=== PATIENT | male | born 1950 | race African-American/Black ===

== ENCOUNTER 2017-12-10 14:41 | Inpatient (IN) | payer MEDICARE ==
[~2017-12-10] VITALS: Ht 182.9 cm; Wt 97.5 kg
[2017-12-10] MEDS ORDERED: SODIUM CHLORIDE 0.9% 500 ML IVB ONE (15:10)
[2017-12-10 15:38] LABS: Basophils # (auto) 0.1 uL; Basophils % (auto) 0.5 % (0.0-2.0); Eosinophils # (auto) 0.1 uL; Eosinophils % (auto) 0.8 % (0.0-7.0); Hematocrit 43.6 % (41.0-53.0); Hemoglobin 14.5 g/dL (13.5-17.5); Lymphocytes # (auto) 0.7 uL; Lymphocytes % (auto) 6.6 % (10.0-50.0); Mean Corpuscular Hemoglobin 28.5 pg (28.0-32.0); Mean Corpuscular Hgb Conc. 33.2 g/dL (32.0-36.0); Mean Corpuscular Volume 85.7 fL (80.0-100.0); Monocytes % (auto) 9.7 % (0.0-12.0); Neutrophils # (auto) 8.5 uL; Neutrophils % (auto) 82.4 % (37.0-80.0); Platelet Count (auto) 255 10^3/uL (140-450); Red Blood Cells 5.08 10^6/uL (4.5-5.90); Red Cell Distribution Width 14.6 % (11.8-14.3); White Blood Cell 10.3 10^3/uL (4.4-10.8)
[2017-12-10 15:45] LABS: Albumin 2.8 g/dL (3.4-5.0); BUN/Creatinine Ratio 13.2; Calcium 8.9 mg/dL (8.5-10.1); Magnesium 2.4 mg/dL (1.6-2.6); Potassium 4.4 mmol/L (3.5-5.1)
[2017-12-10 15:50] LABS: Bilirubin, Total 0.5 mg/dL (0.2-1.0); Total Protein 7.4 g/dL (6.4-8.2)
[2017-12-10] MEDS ORDERED: MORPHINE SULFATE 4 MG/ML SYR/VIAL IV ONE (17:00)
[2017-12-10] MEDS ORDERED: ONDANSETRON HCL 4 MG/2 ML VIAL IV ONE (17:00)
[2017-12-10] MEDS ORDERED: IOHEXOL 300 MG/ML 100ML BOTTLE IJ ONE (17:14)
[2017-12-10] MEDS ORDERED: MORPHINE SULFATE 4 MG/ML SYR/VIAL IV PRN (17:15)
[2017-12-10] MEDS ORDERED: ONDANSETRON HCL 4 MG/2 ML VIAL IV PRN (17:15)
[2017-12-10] MEDS ORDERED: LORazepam 0.5 MG TAB PO PRN (17:15)
[2017-12-10] MEDS ORDERED: DEXTROSE (50%) 50ML SYRG IV PRN (17:15)
[2017-12-10] MEDS ORDERED: traMADol HCL 50 MG TAB PO PRN (17:15)
[2017-12-10] MEDS ORDERED: NITROGLYCERIN 0.4 MG SL TAB SL PRN (17:15)
[2017-12-10 17:29] LABS: INR 1.27 (0.9-1.15); Partial Thromboplastin Time 27.1 sec (23.78-33.04); Prothrombin Time 13.4 sec (9.27-12.13)
[2017-12-10] MEDS: SODIUM CHLORIDE 0.9% 1,000 ML IV SCH (17:45)
[2017-12-10] MEDS ORDERED: HALO2CON8 PO (19:35)
[2017-12-10] MEDS ORDERED: METR500T PO (19:35)
[2017-12-10] MEDS ORDERED: AMLO10TA12 PO (19:35)
[2017-12-10] MEDS ORDERED: AMOX400S53 PO (19:35)
[2017-12-10] MEDS ORDERED: LEV50T PO (19:35)
[2017-12-10] MEDS: MORPHINE SULFATE 4 MG/ML SYR/VIAL IV PRN (21:15)
[2017-12-10] MEDS: TEMAZEPAM 15 MG CAP PO PRN (21:16)
[2017-12-10] MEDS: ACCU-CHEK COMFORT CURVE STRIP VI SCH (21:18)
[2017-12-10 22:00] VITALS: BP 123/75
[2017-12-11] MEDS: ACCU-CHEK COMFORT CURVE STRIP VI SCH ×5 (01:31→23:31)
[2017-12-11] MEDS: MORPHINE SULFATE 4 MG/ML SYR/VIAL IV PRN ×3 (03:49→18:09)
[2017-12-11] MEDS: SODIUM CHLORIDE 0.9% 1,000 ML IV SCH ×3 (04:22→23:30)
[2017-12-11 05:00] VITALS: BP 107/84
[2017-12-11 05:43] LABS: Calcium 8.1 mg/dL (8.5-10.1); Potassium 4.3 mmol/L (3.5-5.1)
[2017-12-11 05:49] LABS: Albumin 2.4 g/dL (3.4-5.0); BUN/Creatinine Ratio 13.1; Bilirubin, Total 0.4 mg/dL (0.2-1.0); Total Protein 6.5 g/dL (6.4-8.2)
[2017-12-11 08:00] VITALS: BP 147/73
[2017-12-11 09:00] VITALS: BP 147/73
[2017-12-11] MEDS: PANTOPRAZOLE 40 MG TAB PO SCH (10:37)
[2017-12-11 13:00] VITALS: BP 134/97
[2017-12-11] MEDS ORDERED: IOHEXOL 300 MG/ML 100ML BOTTLE IJ ONE (15:10)
[2017-12-11 16:07] VITALS: BP 150/90
[2017-12-11 22:00] VITALS: BP 143/95
[2017-12-12] MEDS: MORPHINE SULFATE 4 MG/ML SYR/VIAL IV PRN ×4 (01:02→18:18)
[2017-12-12 04:47] VITALS: BP 118/72
[2017-12-12] MEDS: ACCU-CHEK COMFORT CURVE STRIP VI SCH ×2 (06:22→12:00)
[2017-12-12 08:00] VITALS: BP 136/96
[2017-12-12 09:00] VITALS: BP 136/96
[2017-12-12] MEDS: SODIUM CHLORIDE 0.9% 1,000 ML IV SCH ×2 (10:23→18:21)
[2017-12-12] MEDS: PANTOPRAZOLE 40 MG TAB PO SCH (10:23)
[2017-12-12 13:00] VITALS: BP 125/88
[2017-12-12 17:00] VITALS: BP 152/94
[2017-12-12] MEDS ORDERED: IOHEXOL 300 MG/ML 100ML BOTTLE IJ ONE (17:02)
[2017-12-12 22:00] VITALS: BP 124/90
[2017-12-12] MEDS: MORPHINE SULF 30 mg ER tab PO SCH (22:02)
[2017-12-12] MEDS: TEMAZEPAM 15 MG CAP PO PRN (22:04)
[2017-12-13 05:00] VITALS: BP 113/81
[2017-12-13] MEDS: SODIUM CHLORIDE 0.9% 1,000 ML IV SCH (05:12)
[2017-12-13 08:00] VITALS: BP 147/94
[2017-12-13 09:35] VITALS: BP 147/94
[2017-12-13] MEDS: PANTOPRAZOLE 40 MG TAB PO SCH (09:51)
[2017-12-13] MEDS: MORPHINE SULF 30 mg ER tab PO SCH ×2 (09:52→22:01)
[2017-12-13 13:22] VITALS: BP 121/78
[2017-12-13 16:48] VITALS: BP 131/83
[2017-12-13 22:00] VITALS: BP 131/93
[2017-12-13] MEDS: TEMAZEPAM 15 MG CAP PO PRN (22:02)
[2017-12-14 04:56] VITALS: BP 142/98
[2017-12-14 05:55] LABS: INR 1.27 (0.9-1.15); Partial Thromboplastin Time 28.1 sec (23.78-33.04); Prothrombin Time 13.4 sec (9.27-12.13)
[2017-12-14 08:00] VITALS: BP_SYST 125; BP_SYST 142; BP_DIAS 91; BP_DIAS 98
[2017-12-14] MEDS: PANTOPRAZOLE 40 MG TAB PO SCH (10:00)
[2017-12-14] MEDS: MORPHINE SULF 30 mg ER tab PO SCH ×2 (10:00→21:59)
[2017-12-14 11:47] VITALS: BP 123/86
[2017-12-14] MEDS ORDERED: MIDAZOLAM HCL 1MG/1ML-2 ML VIAL ONE (12:15)
[2017-12-14] MEDS ORDERED: fentaNYL CITRATE 100 MCG/2 ML VL ONE (12:15)
[2017-12-14] MEDS ORDERED: LIDOCAINE 2% (LOCAL ANESTH.) PF 5ml SDV ONE (12:18)
[2017-12-14] MEDS ORDERED: GELATIN 1 SPONGE SIZE 100 TOP ONE (12:51)
[2017-12-14 16:31] VITALS: BP 139/92
[2017-12-14 20:00] VITALS: BP 118/85
[2017-12-14 22:00] VITALS: BP 118/85
[2017-12-14] MEDS: TEMAZEPAM 15 MG CAP PO PRN (22:08)
[2017-12-15 05:30] VITALS: BP 138/82
[2017-12-15 09:00] VITALS: BP 155/97
[2017-12-15] MEDS: PANTOPRAZOLE 40 MG TAB PO SCH (10:11)
[2017-12-15] MEDS: MORPHINE SULF 30 mg ER tab PO SCH (10:12)
[2017-12-15 13:00] VITALS: BP 145/82
[2017-12-15] MEDS ORDERED: MORP-110 PO (16:08)
[2017-12-15 17:27] VITALS: BP 139/97
== END 2017-12-15 17:03 | disposition home or self-care (01) | DRG 436 ==
LOC: ER 14:41 → TELE 14:42 → TELE-WESTW 18:44
PROVIDERS: ADMIT Internal Medicine; ATTEND Family Medicine
PROC: 0FB03ZX Excision of Liver, Percutaneous Approach, Diagnostic (ICD-10-PCS; principal; 2017-12-14)
DX: C25.9 Malignant neoplasm of pancreas, unspecified (principal); C78.7 Secondary malignant neoplasm of liver and intrahepatic bile duct; E44.0 Moderate protein-calorie malnutrition; R73.9 Hyperglycemia, unspecified; I10 Essential (primary) hypertension; R59.1 Generalized enlarged lymph nodes; E78.00 Pure hypercholesterolemia, unspecified; N28.1 Cyst of kidney, acquired; E03.9 Hypothyroidism, unspecified; E78.5 Hyperlipidemia, unspecified; E86.0 Dehydration; R06.89 Other abnormalities of breathing; Z88.8 Allergy status to other drugs, medicaments and biological substances; Z87.11 Personal history of peptic ulcer disease
CPT/HCPCS: 10022; 36415; 36600; 71260; 74150; 74176; 74178; 76700; 77012; 80053; 82105; 82150; 82378; 82805; 82962; 83036; 83690; 83735; 84484; 85025; 85610; 85730; 86301; 94761; G0378; J2001; J2250; J2405